=== PATIENT | female | born 1950 | race Asian ===

== ENCOUNTER 2018-06-12 12:38 | Day surgery (SDC) | payer OTHER ==
[~2018-06-12] VITALS: Ht 144.8 cm; Wt 54.6 kg
[2018-06-12 14:03] VITALS: Ht 144.8 cm; Wt 54.6 kg
[2018-06-12] MEDS ORDERED: LIDOCAINE 100 MG SYRINGE ONE (14:05)
[2018-06-12] MEDS ORDERED: PROPOFOL 20 ML ONE (14:05)
[2018-06-12] MEDS ORDERED: METF-849 PO (14:08)
[2018-06-12] MEDS ORDERED: PROPOFOL 40 ML ONE (14:10)
[2018-06-12 14:14] VITALS: BP 172/77; PULSE 68; RESP 18
--- NOTE | 2018-06-12 14:16 | HPN ---
Date/Time of Note Date/Time of Note DATE: 06/12/18 TIME: 14:15 Interval H&P Admission Note Pt. seen H&P reviewed: No system changes WHITLEY MENDOZA Jun 12, 2018 14:16
--- NOTE | 2018-06-12 14:16 | PREAC ---
Date/Time of Note Date/Time of Note DATE: 06/12/18 TIME: 14:15 Anesthesia Eval and Record Evaluation Time Pre-Procedure Interview DATE: 06/12/18 TIME: 14:15 Age 67 Sex female NPO: 8 hrs Preoperative diagnosis GERD, SCREENING COLON CANCER Planned procedure EGD AND COLONOSCOPY Past Medical History Past Medical History: Includes Cardio: HTN, Dyslipidemia Endo: Diabetes Surgery & Anesthesia Issues No known issue Meds Anticoagulation: No Beta Ruma within 24 hr: No Reason Beta Ruma not given: Pt. not on B-Ruma Reported Medications Metformin* (Glucophage*) 500 Mg Tab, 500 MG PO WITH MEALS, #90 TAB 06/12/18 Meds reviewed: Yes Allergies Coded Allergies: No Known Drug Allergies (Verified Allergy, Unknown, 06/12/18) Allergies Reviewed: Yes Labs/Studies Labs Reviewed: Reviewed by anesthesiologist test: N/A Pre-procedure Exam Airway: Adequate mouth opening, Adequate thyromental dist Mallampati: Mallampati II Teeth: Normal Lung: Normal Heart: Normal ASA Physical Status ASA physical status: 3 Emergency: None Planned Anesthetic General/MAC: MAC Planned Pain Management Parenteral pain med, Local by surgeon Pre-operative Attestations Prior to commencing anesthesia and surgery, the patient was re-evaluated, there was verification of: *The patient's identity *The results of appropriate recent lab work and preoperative vital signs *The above evaluation not changing prior to induction *Anesthetic plan, risk benefits, alternative and complications discussed with patient/family; questions answered; patient/family understands, accepts and wishes to proceed. KASANDRA HAMMOND Jun 12, 2018 14:16
--- NOTE | 2018-06-12 15:16 | PAC ---
Date/Time of Note Date/Time of Note DATE: 06/12/18 TIME: 15:15 Post-Anesthesia Notes Post-Anesthesia Note Last documented vital signs bp 146/71 hr 78 rr 16 spo2 100% temp 97 Activity: WNL Respiratory function: WNL Cardiovascular function: WNL Mental status: Baseline Pain reasonably controlled: Yes Hydration appropriate: Yes Nausea/Vomiting absent: Yes KASANDRA HAMMOND Jun 12, 2018 15:16
== END 2018-06-12 16:33 | disposition home or self-care (01) ==
LOC: GIL 12:38
PROVIDERS: ATTEND Internal Medicine Gastroenterology
DX: Z12.11 Encounter for screening for malignant neoplasm of colon (principal); D12.3 Benign neoplasm of transverse colon; D12.8 Benign neoplasm of rectum; K64.8 Other hemorrhoids; K21.9 Gastro-esophageal reflux disease without esophagitis; I86.4 Gastric varices; I10 Essential (primary) hypertension; E11.9 Type 2 diabetes mellitus without complications
CPT/HCPCS: 43239; 45385; 82962; 88305; J2001; Z7610